=== PATIENT | female | born 1970 | race Caucasian/White ===

== ENCOUNTER 2017-04-19 19:11 | Emergency (ER) | payer BC, OTHER ==
[~2017-04-19] VITALS: Ht 152.4 cm; Wt 68.6 kg
[~2017-04-19 19:11] MED LIST: DULO20 PO; HYDR-3533 PO; LOVA20TA PO; OMEP20CA5 PO; SUCR1TAB6 PO
[2017-04-19 19:17] VITALS: BP 131/83; PULSE 85; RESP 17; O2SAT 97
--- NOTE | 2017-04-19 19:24 | PD ---
HPI Chief Complaint: Syncope/Near-Syncope Time Seen by Provider: 19:14 Travel History International Travel<30 days: No Contact w/Intl Traveler<30days: No Traveled to known affect area: No History of Present Illness HPI This is a 46-year-old female who presents to the emergency department having donated plasma for the first time this morning and subsequently later in the day having had an episode of syncope. Patient reports she felt fine after donating, ate and drank and went home. She ate some chicken and rice and drank some lemonade. Later on she took her lisinopril as well as the rest of her medications when she started to feel woozy, lightheaded and dizzy, constant, moderate severity, feeling like she was going to pass out. This lasted for about half an hour. She called 911 and they stayed with her on the phone until her could arrive. She did not completely lose consciousness. This is never happened to her before. 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 PFSH Past Medical History Blood Disorders: No Anxiety: Yes Cancer: No Cardiovascular Problems: Yes (HTN) High Cholesterol: Yes Diminished Hearing: No Endocrine: No Gastrointestinal Disorders: Yes Genitourinary: No Hypertension: Yes Immune Disorder: No Musculoskeletal: No Neurologic: No Psychiatric: No Respiratory: No ?: Not Menopausal: No Past Surgical History AICD: No Section: Yes Gynecologic Surgery: Yes (OVARIAN CYST AND TWO C SECTION ) Joint Replacement: No Pacemaker: No Other Surgery: Yes Social History Alcohol Use: Yes (RARELY) Tobacco Use: No Substance Use: No Allergies-Medications (Allergen,Severity, Reaction): Coded Allergies: Codeine (Verified Allergy, Severe, Nausea/Vomiting, 04/19/17) Reported Meds & Prescriptions Reported Meds & Active Scripts Active Reported Alprazolam 0.25 Mg Tab 0.25 Mg PO Q4H PRN Omeprazole 10 Mg Cap 10 Mg PO DAILY Lisinopril 10 Mg Tab 10 Mg PO DAILY Pravastatin 10 Mg Tab 10 Mg PO DAILY Duloxetine DR (Duloxetine HCl) 30 Mg Capdr 30 Mg PO DAILY B Complex (B-Complex Vitamins) 1 Cap Unknown Dose PO DAILY Multi-Vitamin Daily (Multiple Vitamin) 1 Tab Tab 1 Tab PO DAILY Review of Systems Except as stated in HPI: all other systems reviewed are Neg Physical Exam Narrative GENERAL:Well appearing, no acute distress SKIN: Focused skin assessment warm and dry. HEAD: Atraumatic. Normocephalic. EYES: Pupils equal and round. No injection or drainage. ENT: Moist mucous membranes NECK: Trachea midline. CARDIOVASCULAR: Regular rate and rhythm. No murmur appreciated. RESPIRATORY: Clear to auscultation. Breath sounds equal bilaterally. GASTROINTESTINAL: Abdomen soft, non-tender, nondistended. MUSCULOSKELETAL: No obvious deformities. NEUROLOGICAL: Awake and alert. No obvious cranial nerve deficits. Moving all extremities. PSYCHIATRIC: anxious with some pressured speech. Data Data Last Documented VS Vital Signs Date Time Temp Pulse Resp B/P Pulse Ox O2 Delivery O2 Flow Rate FiO2 04/19/17 19:17 85 17 131/83 97 Orders Complete Blood Count With Diff (04/19/17 19:24) Basic Metabolic Panel (Bmp) (04/19/17 19:24) ^ Insert Iv (04/19/17 19:24) Sodium Chlor 0.9% 1000 Ml Inj (Ns 1000 M (04/19/17 19:30) Electrocardiogram (04/19/17 ) Labs Laboratory Tests Test 04/19/17 19:30 White Blood Count 9.6 TH/MM3 Red Blood Count 4.96 MIL/MM3 Hemoglobin 14.9 GM/DL Hematocrit 44.8 % Mean Corpuscular Volume 90.3 FL Mean Corpuscular Hemoglobin 30.0 PG Mean Corpuscular Hemoglobin 33.2 % Concent Red Cell Distribution Width 13.2 % Platelet Count 260 TH/MM3 Mean Platelet Volume 9.0 FL Neutrophils (%) (Auto) 59.3 % Lymphocytes (%) (Auto) 34.0 % Monocytes (%) (Auto) 4.0 % Eosinophils (%) (Auto) 2.1 % Basophils (%) (Auto) 0.6 % Neutrophils # (Auto) 5.6 TH/MM3 Lymphocytes # (Auto) 3.3 TH/MM3 Monocytes # (Auto) 0.4 TH/MM3 Eosinophils # (Auto) 0.2 TH/MM3 Basophils # (Auto) 0.1 TH/MM3 CBC Comment DIFF FINAL Differential Comment Sodium Level 142 MEQ/L Potassium Level 3.1 MEQ/L Chloride Level 105 MEQ/L Carbon Dioxide Level 28.3 MEQ/L Anion Gap 9 MEQ/L Blood Urea Nitrogen 9 MG/DL Creatinine 0.71 MG/DL Estimat Glomerular Filtration 89 ML/MIN Rate Random Glucose 170 MG/DL Calcium Level 8.1 MG/DL MDM Medical Decision Making Medical Screen Exam Complete: Yes Emergency Medical Condition: Yes Interpretation(s) No tachycardia, EKG: Normal sinus rhythm with no ST changes no leukocytosis Mild hypokalemia Differential Diagnosis Vasovagal syncope, dehydration, electrolyte abnormality, anemia, arrhythmia Narrative Course This is a 46-year-old female who donated plasma earlier this morning and felt lightheaded and dizzy this afternoon. She had taken her lisinopril prior to the onset of her symptoms. Her EKG is reassuring with no evidence of arrhythmia. She has some mild hypokalemia on labs. She was given a liter of IV fluid in the emergency department. I suspect her symptoms are in the setting of some dehydration following plasma donation. I don't think she has a life-threatening etiology of her lightheadedness or dizziness and I think she is safe to be discharged and follow-up with her primary care physician. Diagnosis Primary Impression: Dehydration Patient Instructions: General Instructions Additional Instructions: If you develop severe chest pain, shortness of breath, sweating, lightheadedness , dizziness or difficulty breathing return to the emergency department immediately. Followup with your primary care physician in 2-3 days if your symptoms are not resolved. Med/Other Pt SpecificInfo: No Change to Meds Disposition: 01 DISCHARGE HOME Condition: Stable Jhoana Shrestha MD Apr 19, 2017 19:24
[2017-04-19] MEDS ORDERED: ALPR0.25 PO (19:26)
[2017-04-19] MEDS ORDERED: VITACAP7 PO (19:26)
[2017-04-19] MEDS ORDERED: DULO1CAP2 PO (19:26)
[2017-04-19] MEDS ORDERED: MULT-65 PO (19:26)
[2017-04-19] MEDS ORDERED: LISI10TA3 PO (19:26)
[2017-04-19] MEDS ORDERED: PRAV10TA PO (19:26)
[2017-04-19] MEDS ORDERED: OMEP10CA PO (19:26)
[2017-04-19] MEDS ORDERED: SODIUM CHLOR 0.9% 1000 ML INJ 1,000 ML IV ONE (19:30)
[2017-04-19 19:43] LABS: AUTOMATED NEUTROPHIL # 5.6 TH/MM3 (1.8-7.7); BASOPHIL # 0.1 TH/MM3 (0-0.2); BASOPHIL % 0.6 % (0.0-2.0); EOSINOPHIL # 0.2 TH/MM3 (0-0.4); EOSINOPHIL % 2.1 % (0.0-4.0); HEMATOCRIT 44.8 % (35.0-46.0); LYMPHOCYTE # 3.3 TH/MM3 (1.0-4.8); MEAN CELL VOLUME 90.3 FL (80.0-100.0); MEAN CORPUSCULAR HGB CONC 33.2 % (32.0-36.0); NEUT % 59.3 % (16.0-70.0); PLATELET COUNT 260 TH/MM3 (150-450); RED BLOOD COUNT 4.96 MIL/MM3 (4.00-5.30); RED CELL DISTRIBUTION WIDTH 13.2 % (11.6-17.2); WHITE BLOOD COUNT 9.6 TH/MM3 (4.0-11.0)
[2017-04-19 19:48] LABS: HEMO FLAGS DIFF FINAL
[2017-04-19 19:51] LABS: POTASSIUM 3.1 MEQ/L (3.5-5.1)
[2017-04-19 19:53] LABS: BICARBONATE 28.3 MEQ/L (21.0-32.0)
[2017-04-19] MEDS ORDERED: POTASSIUM CHLORIDE 25 MEQ EFFERVESCENT TAB PO ONE (20:00)
[2017-04-19 20:29] VITALS: BP 112/98; TEMP 98.2
--- NOTE | 2017-04-20 12:34 | EKG ---
Date Performed: 04/19/2017 Time Performed: 19:36:04 PTAGE: 46 years EKG: Sinus rhythm MARKED LEFT AXIS DEVIATION POSSIBLE ANTERIOR MYOCARDIAL INFARCTION ABNORMAL ECG NO PREVIOUS TRACING DOCTOR: Conner Danielle Interpretating Date/Time 04/20/2017 12:32:53
== END 2017-04-19 20:52 | disposition home or self-care (01) ==
LOC: PHED 19:11
DX: E86.0 Dehydration (principal)
CPT/HCPCS: 80048; 85025; 93005; 96360; 99284; J7030